=== PATIENT | male | born 1960 | race Caucasian/White ===

== ENCOUNTER 2019-09-28 05:19 | Inpatient (IN) ==
[2019-09-28] MEDS ORDERED: Ipratropium/Albuterol Neb 3 ML ONE ×2 (05:34→10:43)
[2019-09-28] MEDS ORDERED: methylPREDNISolone 125 MG/2 ML VIAL IVP ONE (05:37)
[2019-09-28] MEDS ORDERED: Ipratropium/Albuterol Neb 3 ML IH ONE (05:38)
[2019-09-28 05:39] LABS: ABG Base Excess -6 mEq/L (-2 to 3); ABG HCO3 22 mEq/L (21-27); ABG Oxygen Saturation 100 % (95-98); ABG PCO2 52 mmHg (35-45); ABG PH 7.23 pH Units (7.32-7.45); ABG PO2 231 mmHg (85-104); ABG TCO2 24 mEq/L (20-26)
[2019-09-28 05:57] LABS: Basophils # 0.1 K/mcL (0.0-0.2); Basophils % 0.5 %; Eosinophils # 0.4 K/mcL (0.0-0.6); Eosinophils % 3.3 %; Hematocrit 45.5 % (37.5-50.1); Hemoglobin 15.4 g/dL (12.9-16.9); Immature Granulocytes % 0.4 % (0-4); Lymphocytes # 4.1 K/mcL (0.6-4.6); Lymphocytes % 39.3 %; Mean Corpuscular HGB Conc 33.8 g/dL (31.6-35.5); Mean Corpuscular Hemoglobin 33.3 pg (28.0-33.3); Mean Corpuscular Volume 98.3 fL (83.0-100.0); Mean Platelet Volume 8.4 fL (9.4-12.4); Monocytes % 9.7 %; Neutrophils # 4.9 K/mcL (1.6-8.9); Platelet Count 369 K/mcL (140-400); Red Blood Count 4.63 M/mcL (4.19-5.50); Red Cell Distribution Width 12.2 % (11.5-14.5); Segmented Neutrophils % 46.8 %; White Blood Count 10.5 K/mcL (4.3-11.1)
[2019-09-28 06:02] LABS: Prothrombin Time 11.2 Seconds (9.4-12.1)
[2019-09-28 06:04] LABS: Activated Partial Thrombo Time 28.7 Seconds (26.0-36.0)
[2019-09-28 06:12] LABS: BUN/Creatinine Ratio 14 (6-26); Blood Urea Nitrogen 12 mg/dL (6-20); Calcium 9.1 mg/dL (8.6-10.3); Carbon Dioxide 24 mEq/L (23-29); Chloride 96 mEq/L (98-107); Glucose 216 mg/dL (70-105); Osmolality,Calculated 282 (280-300); Potassium 4.2 mEq/L (3.5-5.1); Sodium 133 mEq/L (136-145); eGFR For African Americans > 60 (> 60); eGFR For Non-African Americans > 60 (> 60)
[2019-09-28 06:13] LABS: Troponin I < 0.03 ng/mL (< 0.04)
[2019-09-28] MEDS ORDERED: *HR* FentaNYL (PF) 100 MCG/2 ML VIAL IVP ONE (06:27)
[2019-09-28] MEDS ORDERED: 0.9 % Sodium Chloride 500 ML IVC ONE ×2 (07:07→08:01)
[2019-09-28] MEDS ORDERED: Naloxone 0.4 MG/ML INJ IVP PRN (07:54)
[2019-09-28] MEDS ORDERED: Ondansetron 4 MG/2 ML VIAL IVP PRN (07:54)
[2019-09-28] MEDS: Azithromycin 500 MG in 0.9 % Sodium Chloride 250 ML IVPB SCH (09:42)
[2019-09-28] MEDS: 0.9 % Sodium Chloride 1,000 ML IVC SCH ×2 (09:42→23:21)
[2019-09-28] MEDS: Budesonide/Formoterol 160/4.5 1 PUFF INH IH SCH ×2 (09:45→19:52)
[2019-09-28] MEDS: Ipratropium/Albuterol Neb 3 ML IH SCH ×4 (10:52→23:09)
[2019-09-28] MEDS ORDERED: Aspirin 81 MG TAB.CHEW PO ONE (11:00)
[2019-09-28] MEDS ORDERED: *HR* Heparin 5,000 UNIT/ML VIAL IVP ONE (11:01)
[2019-09-28] MEDS ORDERED: *HR* Heparin 5,000 UNIT/ML VIAL IVP PRN ×2 (11:01)
[2019-09-28] MEDS ORDERED: Heparin 25,000 UNIT/250 ML D5W 25,000 UNIT/250 ML IV.SOLN IVC SCH (11:15)
[2019-09-28 11:35] LABS: ABG Base Excess -2 mEq/L (-2 to 3); ABG HCO3 24 mEq/L (21-27); ABG Oxygen Saturation 95 % (95-98); ABG PCO2 42 mmHg (35-45); ABG PH 7.36 pH Units (7.32-7.45); ABG PO2 78 mmHg (85-104); ABG TCO2 25 mEq/L (20-26)
[2019-09-28 17:34] LABS: Adenovirus Not Detected (Not Detect); Bordetella Pertussis Not Detected (Not Detect); Chlamydophila pneumoniae Not Detected (Not Detect); Coronavirus 229E Not Detected (Not Detect); Coronavirus HKU1 Not Detected (Not Detect); Coronavirus NL63 Not Detected (Not Detect); Coronavirus OC43 Not Detected (Not Detect); Human Metapneumovirus Not Detected (Not Detect); Human Rhinovirus/Enterovirus Not Detected (Not Detect); Influenza A Subtype 2009 H1 Not Detected (Not Detect); Influenza A Untypeable Not Detected (Not Detect); Influenza B Not Detected (Not Detect); Mycoplasma pneumoniae Not Detected (Not Detect); Parainfluenza Virus 1 Not Detected (Not Detect); Parainfluenza Virus 2 Not Detected (Not Detect); Parainfluenza Virus 3 Not Detected (Not Detect); Parainfluenza Virus 4 Not Detected (Not Detect); Respiratory Syncytial Virus Not Detected (Not Detect)
[2019-09-28] MEDS: Nicotine 14 MG PATCH.TD24 TD SCH (17:47)
[2019-09-28] MEDS: MethylPREDNISolone 40 MG/ML VIAL IVP SCH (17:48)
[2019-09-28] MEDS ORDERED: *HR* Heparin 5,000 UNIT/ML VIAL SQ SCH (18:00)
[2019-09-29 02:14] LABS: Basophils % 0.2 %; Hematocrit 37.9 % (37.5-50.1); Immature Granulocytes % 0.3 % (0-4); Lymphocytes # 0.7 K/mcL (0.6-4.6); Lymphocytes % 10.4 %; Mean Corpuscular HGB Conc 35.9 g/dL (31.6-35.5); Mean Corpuscular Hemoglobin 33.2 pg (28.0-33.3); Mean Corpuscular Volume 92.4 fL (83.0-100.0); Mean Platelet Volume 8.6 fL (9.4-12.4); Monocytes # 0.6 K/mcL (0.0-1.3); Monocytes % 10.2 %; Platelet Count 290 K/mcL (140-400); Red Cell Distribution Width 12.3 % (11.5-14.5); Segmented Neutrophils % 78.9 %; White Blood Count 6.3 K/mcL (4.3-11.1)
[2019-09-29 02:15] LABS: Hemoglobin 13.6 g/dL (12.9-16.9)
[2019-09-29 02:36] LABS: Alanine Aminotransferase 15 Units/L (7-52); Aspartate Amino Transferase 25 Units/L (13-39); BUN/Creatinine Ratio 16 (6-26); Blood Urea Nitrogen 9 mg/dL (6-20); Calcium 8.8 mg/dL (8.6-10.3); Carbon Dioxide 23 mEq/L (23-29); Chloride 99 mEq/L (98-107); Glucose 132 mg/dL (70-105); Magnesium 1.7 mg/dL (1.6-2.6); Osmolality,Calculated 275 (280-300); Sodium 132 mEq/L (136-145); eGFR For African Americans > 60 (> 60); eGFR For Non-African Americans > 60 (> 60)
[2019-09-29 02:37] LABS: Chol/HDL Ratio 2.3 (0-4.9)
[2019-09-29] MEDS: Ipratropium/Albuterol Neb 3 ML IH SCH ×6 (03:14→23:31)
[2019-09-29] MEDS: MethylPREDNISolone 40 MG/ML VIAL IVP SCH ×2 (05:34→18:31)
[2019-09-29 07:01] LABS: Estimated Average Glucose 126 mg/dl
[2019-09-29] MEDS: Budesonide/Formoterol 160/4.5 1 PUFF INH IH SCH ×2 (07:32→19:37)
[2019-09-29] MEDS: Azithromycin 500 MG in 0.9 % Sodium Chloride 250 ML IVPB SCH (07:49)
[2019-09-29] MEDS: Aspirin Enteric Coated 81 MG Tablet PO SCH (07:49)
[2019-09-29] MEDS: Nicotine 14 MG PATCH.TD24 TD SCH (07:49)
[2019-09-29] MEDS ORDERED: Perflutren Lipid Microsphere 1.3 ML in 0.9 % Sodium Chloride 8.7 ML IVP ONE (11:01)
[2019-09-29] MEDS ORDERED: Perflutren Lipid Microsphere 2 ML VIAL ONE (11:05)
[2019-09-29] MEDS ORDERED: ISOVUE-370 200 ML INFUS..BTL ONE (16:04)
[2019-09-29] MEDS ORDERED: Heparin 1,000 UNITS/500 mL 500 ML ONE (16:04)
[2019-09-29] MEDS ORDERED: 0.9 % Sodium Chloride 2,000 ML ONE (16:04)
[2019-09-29] MEDS ORDERED: *HR* Heparin 10,000 UNIT/10 ML VIAL ONE (16:04)
[2019-09-29] MEDS ORDERED: Nitroglycerin 1,000 MCG/10 ML VIAL IV ONE (16:04)
[2019-09-29] MEDS ORDERED: *HR* Midazolam HCl 2 MG/2 ML VIAL ONE (16:12)
[2019-09-29] MEDS ORDERED: *HR* FentaNYL (PF) 100 MCG/2 ML VIAL ONE (16:12)
[2019-09-29] MEDS ORDERED: Verapamil 5 MG/2 ML VIAL ONE (16:18)
[2019-09-29] MEDS: *HR* Heparin 5,000 UNIT/ML VIAL SQ SCH (21:36)
[2019-09-30 03:07] LABS: Basophils % 0.1 %; Hematocrit 38.5 % (37.5-50.1); Hemoglobin 13.5 g/dL (12.9-16.9); Immature Granulocytes % 0.2 % (0-4); Lymphocytes # 0.6 K/mcL (0.6-4.6); Mean Corpuscular HGB Conc 35.1 g/dL (31.6-35.5); Mean Corpuscular Hemoglobin 33.3 pg (28.0-33.3); Mean Corpuscular Volume 95.1 fL (83.0-100.0); Monocytes # 0.6 K/mcL (0.0-1.3); Monocytes % 6.7 %; Platelet Count 310 K/mcL (140-400); Red Blood Count 4.05 M/mcL (4.19-5.50); Red Cell Distribution Width 12.3 % (11.5-14.5); White Blood Count 8.2 K/mcL (4.3-11.1)
[2019-09-30 03:25] LABS: BUN/Creatinine Ratio 22 (6-26); Blood Urea Nitrogen 14 mg/dL (6-20); Calcium 8.9 mg/dL (8.6-10.3); Carbon Dioxide 26 mEq/L (23-29); Chloride 99 mEq/L (98-107); Glucose 125 mg/dL (70-105); Magnesium 1.6 mg/dL (1.6-2.6); Osmolality,Calculated 276 (280-300); Sodium 132 mEq/L (136-145); eGFR For African Americans > 60 (> 60); eGFR For Non-African Americans > 60 (> 60)
[2019-09-30] MEDS: Ipratropium/Albuterol Neb 3 ML IH SCH ×3 (03:41→10:59)
[2019-09-30] MEDS: MethylPREDNISolone 40 MG/ML VIAL IVP SCH (06:25)
[2019-09-30] MEDS: *HR* Heparin 5,000 UNIT/ML VIAL SQ SCH (06:25)
[2019-09-30] MEDS: Budesonide/Formoterol 160/4.5 1 PUFF INH IH SCH (07:53)
[2019-09-30] MEDS ORDERED: Metoprolol XL (24 HR) Succ 25 MG TAB.ER.24H PO SCH (09:00)
[2019-09-30] MEDS: Azithromycin 500 MG in 0.9 % Sodium Chloride 250 ML IVPB SCH (09:21)
[2019-09-30] MEDS: Aspirin Enteric Coated 81 MG Tablet PO SCH (09:22)
[2019-09-30] MEDS: Nicotine 14 MG PATCH.TD24 TD SCH (09:22)
[2019-09-30 11:13] VITALS: BP 112/83
== END 2019-09-30 13:45 | disposition home or self-care (01) | DRG 280 ==
LOC: 2NNU 05:19 → EMEROOARM 05:19 → 2NNU 09:00 → SUATTDRO 11:44 → MERGE 11:44
PROVIDERS: ADMIT Internal Medicine; ATTEND Pharmacist

== ENCOUNTER 2020-03-06 00:54 | Inpatient (IN) ==
[2020-03-06] MEDS ORDERED: Ipratropium/Albuterol Neb 3 ML ONE (00:59)
[2020-03-06] MEDS ORDERED: methylPREDNISolone 125 MG/2 ML VIAL IVP ONE (01:01)
[2020-03-06] MEDS ORDERED: Ipratropium/Albuterol Neb 3 ML IH ONE ×2 (01:01→02:14)
[2020-03-06] MEDS ORDERED: 0.9 % Sodium Chloride 1,000 ML ONE (01:10)
[2020-03-06] MEDS ORDERED: *HR* Etomidate 20 MG/10 ML AMPUL IVP ONE (01:16)
[2020-03-06] MEDS ORDERED: *HR* Rocuronium Bromide 50 MG/5 ML VIAL IVP ONE (01:16)
[2020-03-06 01:20] LABS: ABG Base Excess -5 mEq/L (-2 to 3); ABG HCO3 25 mEq/L (21-27); ABG Oxygen Saturation 100 % (95-98); ABG PCO2 69 mmHg (35-45); ABG PH 7.17 pH Units (7.32-7.45); ABG PO2 555 mmHg (85-104); ABG TCO2 27 mEq/L (20-26)
[2020-03-06 01:24] LABS: INR 1.1; Prothrombin Time 12.1 Seconds (9.4-12.1)
[2020-03-06 01:24] LABS: Basophils # 0.1 K/mcL (0.0-0.2); Basophils % 0.5 %; Eosinophils # 0.3 K/mcL (0.0-0.6); Eosinophils % 2.7 %; Hematocrit 41.3 % (37.5-50.1); Hemoglobin 13.7 g/dL (12.9-16.9); Immature Granulocytes % 0.3 % (0-4); Lymphocytes # 2.8 K/mcL (0.6-4.6); Lymphocytes % 29.5 %; Mean Corpuscular HGB Conc 33.2 g/dL (31.6-35.5); Mean Corpuscular Hemoglobin 32.2 pg (28.0-33.3); Mean Corpuscular Volume 96.9 fL (83.0-100.0); Monocytes # 0.9 K/mcL (0.0-1.3); Monocytes % 9.8 %; Neutrophils # 5.5 K/mcL (1.6-8.9); Platelet Count 295 K/mcL (140-400); Red Blood Count 4.26 M/mcL (4.19-5.50); Red Cell Distribution Width 12.3 % (11.5-14.5); Segmented Neutrophils % 57.2 %; White Blood Count 9.6 K/mcL (4.3-11.1)
[2020-03-06 01:31] LABS: Bilirubin,Urine Negative (Negative); Blood,Urine Small (Negative); Clarity,Urine Clear (Clear); Color,Urine Yellow (Yellow); Glucose,Urine (UA) Normal (Normal); Ketones,Urine Negative (Negative); Leukocyte Esterase,Urine Negative (Negative); Nitrite,Urine Negative (Negative); Protein,Urine 30 mg/dL (Neg-Trace); Specific Gravity,Urine 1.016 (1.010-1.025); Urobilinogen,Urine Normal (Normal)
[2020-03-06 01:34] LABS: Bacteria,Urine None Seen per hpf (None-Few); RBC,Urine 15-30 per hpf (0-3); Squamous Epithelial Cell,Urine Many per lpf (None-Few); WBC,Urine 0-3 per hpf (0-3)
[2020-03-06] MEDS: FentaNYL (PF) 1,000 MCG in 0.9 % Sodium Chloride 80 ML IVC SCH ×3 (01:36→19:40)
[2020-03-06 01:43] LABS: Alanine Aminotransferase 20 Units/L (7-52); Albumin/Globulin Ratio 1.9 (1.1-2.2); Alkaline Phosphatase 99 Units/L (34-104); Aspartate Amino Transferase 23 Units/L (13-39); BUN/Creatinine Ratio 18 (6-26); Bilirubin,Direct 0.1 mg/dL (0.0-0.2); Bilirubin,Indirect 0.3 mg/dL (0.0-1.0); Bilirubin,Total 0.4 mg/dL (0.3-1.0); Blood Urea Nitrogen 12 mg/dL (6-20); Calcium 8.3 mg/dL (8.6-10.3); Carbon Dioxide 26 mEq/L (23-29); Chloride 91 mEq/L (98-107); Globulin 2.1 g/dL (2.4-3.5); Glucose 140 mg/dL (70-105); Magnesium 1.8 mg/dL (1.6-2.6); Osmolality,Calculated 264 (280-300); Phosphorous 4.9 mg/dL (2.7-4.5); Potassium 4.6 mEq/L (3.5-5.1); Sodium 126 mEq/L (136-145); Total Protein 6.1 g/dL (6.4-8.9); Troponin I < 0.03 ng/mL (< 0.04); eGFR For African Americans > 60 (> 60); eGFR For Non-African Americans > 60 (> 60)
[2020-03-06] MEDS ORDERED: 0.9 % Sodium Chloride 1,000 ML IVC ONE (01:52)
[2020-03-06 01:54] LABS: Granular Casts,Urine Moderate per lpf (None Seen); Hyaline Casts,Urine None Seen per lpf (None-Few)
[2020-03-06] MEDS ORDERED: cefTRIAXone 2,000 MG in Water for inj. (sterile) 20 ML IVP STA (01:58)
[2020-03-06] MEDS ORDERED: Azithromycin 500 MG in 0.9 % Sodium Chloride 250 ML IVPB STA (01:58)
[2020-03-06] MEDS ORDERED: Albuterol Neb 7.5 MG, Sodium Chloride for inhalation 12 ML IH STA (02:23)
[2020-03-06] MEDS ORDERED: Sodium Chloride for inhalation 3 ML VIAL IH ONE (02:45)
[2020-03-06] MEDS ORDERED: Albuterol 2.5 MG/3 ML NEBULIZER IH ONE (02:45)
[2020-03-06] MEDS ORDERED: Naloxone 0.4 MG/ML INJ IVP PRN (03:19)
[2020-03-06] MEDS ORDERED: Artificial Tears SOLN 15 ML BOTTLE BOTH EYES PRN (03:21)
[2020-03-06] MEDS ORDERED: Isovue-370 500 ML BOTTLE IVP ONE ×2 (03:21→08:24)
[2020-03-06 03:57] LABS: ABG Base Excess -5 mEq/L (-2 to 3); ABG HCO3 23 mEq/L (21-27); ABG Oxygen Saturation 100 % (95-98); ABG PCO2 54 mmHg (35-45); ABG PH 7.24 pH Units (7.32-7.45); ABG PO2 368 mmHg (85-104); ABG TCO2 25 mEq/L (20-26)
[2020-03-06] MEDS: Ipratropium/Albuterol Neb 3 ML IH SCH ×6 (04:21→23:41)
[2020-03-06 04:53] LABS: Eosinophils % 0.7 %; Immature Granulocytes % 0.9 % (0-4); Mean Corpuscular Volume 96.9 fL (83.0-100.0)
[2020-03-06 04:55] LABS: Basophils % 0.1 %; Eosinophils # 0.1 K/mcL (0.0-0.6); Hematocrit 40.3 % (37.5-50.1); Hemoglobin 13.4 g/dL (12.9-16.9); Immature Platelets 2.7 % (1.1-6.1); Lymphocytes # 0.7 K/mcL (0.6-4.6); Lymphocytes % 4.2 %; Mean Corpuscular HGB Conc 33.3 g/dL (31.6-35.5); Mean Corpuscular Hemoglobin 32.2 pg (28.0-33.3); Mean Platelet Volume 8.2 fL (9.4-12.4); Monocytes # 0.4 K/mcL (0.0-1.3); Monocytes % 2.5 %; Neutrophils # 15.3 K/mcL (1.6-8.9); Platelet Count 200 K/mcL (140-400); Red Blood Count 4.16 M/mcL (4.19-5.50); Red Cell Distribution Width 12.4 % (11.5-14.5); Segmented Neutrophils % 91.6 %; White Blood Count 16.7 K/mcL (4.3-11.1)
[2020-03-06 04:58] LABS: INR 1.1; Prothrombin Time 12.4 Seconds (9.4-12.1)
[2020-03-06 05:00] LABS: Activated Partial Thrombo Time 34.1 Seconds (26.0-36.0)
[2020-03-06] MEDS: Artificial Tears SOLN 15 ML BOTTLE BOTH EYES SCH ×5 (05:17→20:11)
[2020-03-06] MEDS ORDERED: *HR* Heparin 5,000 UNIT/ML VIAL SQ SCH (06:00)
[2020-03-06] MEDS ORDERED: 0.9 % Sodium Chloride 500 ML IVC ONE (06:08)
[2020-03-06 06:25] LABS: BUN/Creatinine Ratio 20 (6-26); Blood Urea Nitrogen 11 mg/dL (6-20); Carbon Dioxide 19 mEq/L (23-29); Chloride 90 mEq/L (98-107); Glucose 180 mg/dL (70-105); Potassium 3.8 mEq/L (3.5-5.1); eGFR For African Americans > 60 (> 60); eGFR For Non-African Americans > 60 (> 60)
[2020-03-06 06:26] LABS: Osmolality,Calculated 250 (280-300); Phosphorous 4.2 mg/dL (2.7-4.5)
[2020-03-06 06:27] LABS: Sodium 118 mEq/L (136-145)
[2020-03-06] MEDS ORDERED: 0.9 % Sodium Chloride 1,000 ML IVC SCH (06:45)
[2020-03-06] MEDS ORDERED: Ringers Solution, Lactated 500 ML ONE (07:19)
[2020-03-06] MEDS ORDERED: *HR* Midazolam HCl 5 MG/5 ML VIAL IVP ONE (07:31)
[2020-03-06] MEDS ORDERED: Dexmedetomidine HCl 400 MCG/100 ML MLS IVC ONE ×2 (07:32→20:31)
[2020-03-06] MEDS: Budesonide/Formoterol 160/4.5 1 PUFF INH IH SCH ×2 (07:39→19:51)
[2020-03-06] MEDS: Calcium Gluconate 1gm/50mL 1 GM/50 ML BAG IVPB SCH ×5 (07:54→12:04)
[2020-03-06 08:49] LABS: ABG Base Excess -5 mEq/L (-2 to 3); ABG HCO3 22 mEq/L (21-27); ABG Oxygen Saturation 96 % (95-98); ABG PCO2 49 mmHg (35-45); ABG PH 7.27 pH Units (7.32-7.45); ABG PO2 91 mmHg (85-104); ABG TCO2 24 mEq/L (20-26); Blood Gas Modality ASSIST CONTROL; Blood Gas VT 450 cc
[2020-03-06] MEDS ORDERED: cefTRIAXone 2,000 MG in 0.9 % Sodium Chloride Mini Bag 100 ML IVPB SCH (09:00)
[2020-03-06 09:32] LABS: BUN/Creatinine Ratio 17 (6-26); Blood Urea Nitrogen 12 mg/dL (6-20); Calcium 8.3 mg/dL (8.6-10.3); Carbon Dioxide 26 mEq/L (23-29); Chloride 93 mEq/L (98-107); Glucose 150 mg/dL (70-105); Osmolality,Calculated 263 (280-300); Potassium 4.9 mEq/L (3.5-5.1); Sodium 125 mEq/L (136-145); eGFR For African Americans > 60 (> 60); eGFR For Non-African Americans > 60 (> 60)
[2020-03-06] MEDS: Norepinephrine 4 MG in 0.9 % Sodium Chloride 250 ML IVC SCH (09:51)
[2020-03-06] MEDS ORDERED: Folic Acid 1 MG, Thiamine (B-1) 100 MG in 0.9 % Sodium Chloride 50 ML IVPB STA (09:51)
[2020-03-06] MEDS: Metoprolol XL (24 HR) Succ 25 MG TAB.ER.24H PO SCH (09:53)
[2020-03-06] MEDS ORDERED: Folic Acid 1 MG in 0.9 % Sodium Chloride 50 ML IVPB STA (09:55)
[2020-03-06] MEDS: MethylPREDNISolone 40 MG/ML VIAL IVP SCH ×3 (10:01→22:06)
[2020-03-06] MEDS: Chlorhexidine Rinse 15 ML MOUTHWASH MM SCH ×2 (10:01→19:53)
[2020-03-06] MEDS: Nicotine 14 MG PATCH.TD24 TD SCH (10:01)
[2020-03-06] MEDS: Pantoprazole 40 MG VIAL IVP SCH (10:01)
[2020-03-06] MEDS: Piperacillin/Tazobactam 3.375 GM in 0.9 % Sodium Chloride Mini Bag 100 ML IVPB SCH ×3 (10:02→22:06)
[2020-03-06] MEDS ORDERED: Perflutren Lipid Microsphere 1.3 ML in 0.9 % Sodium Chloride 8.7 ML IVP ONE (10:20)
[2020-03-06 10:22] LABS: Thyroid Stimulating Hormone 0.419 mcIU/mL (0.340-5.600)
[2020-03-06 11:49] LABS: VBG Ionized Calcium 1.18 mmol/L (1.15-1.35)
[2020-03-06 12:01] LABS: BUN/Creatinine Ratio 17 (6-26); Blood Urea Nitrogen 12 mg/dL (6-20); Calcium 8.7 mg/dL (8.6-10.3); Carbon Dioxide 23 mEq/L (23-29); Chloride 94 mEq/L (98-107); Glucose 162 mg/dL (70-105); Osmolality,Calculated 257 (280-300); Potassium 5.2 mEq/L (3.5-5.1); Sodium 122 mEq/L (136-145); eGFR For African Americans > 60 (> 60); eGFR For Non-African Americans > 60 (> 60)
[2020-03-06] MEDS ORDERED: *HR* Heparin 5,000 UNIT/ML VIAL IVP PRN ×2 (12:34)
[2020-03-06] MEDS ORDERED: *HR* Heparin 5,000 UNIT/ML VIAL IVP ONE (12:34)
[2020-03-06] MEDS: Aspirin Enteric Coated 81 MG Tablet PO SCH (12:39)
[2020-03-06] MEDS ORDERED: Heparin 25,000 UNIT/250 ML D5W 25,000 UNIT/250 ML IV.SOLN IVC SCH (12:45)
[2020-03-06] MEDS ORDERED: Aspirin 325 MG TABLET GTUBE ONE (15:02)
[2020-03-06] MEDS ORDERED: 0.9 % Sodium Chloride 250 ML IVC ONE (15:06)
[2020-03-06] MEDS ORDERED: Ringers Solution, Lactated 250 ML IVC ONE (15:10)
[2020-03-06 17:16] LABS: BUN/Creatinine Ratio 17 (6-26); Blood Urea Nitrogen 12 mg/dL (6-20); Calcium 8.7 mg/dL (8.6-10.3); Carbon Dioxide 23 mEq/L (23-29); Chloride 96 mEq/L (98-107); Glucose 187 mg/dL (70-105); Osmolality,Calculated 263 (280-300); Potassium 5.1 mEq/L (3.5-5.1); Sodium 124 mEq/L (136-145); eGFR For African Americans > 60 (> 60); eGFR For Non-African Americans > 60 (> 60)
[2020-03-06] MEDS: Dexmedetomidine HCl 400 MCG/100 ML MLS IVC SCH (20:40)
[2020-03-06 22:44] LABS: BUN/Creatinine Ratio 18 (6-26); Blood Urea Nitrogen 11 mg/dL (6-20); Calcium 8.3 mg/dL (8.6-10.3); Carbon Dioxide 23 mEq/L (23-29); Chloride 96 mEq/L (98-107); Glucose 182 mg/dL (70-105); Osmolality,Calculated 266 (280-300); Potassium 4.7 mEq/L (3.5-5.1); Sodium 126 mEq/L (136-145); eGFR For African Americans > 60 (> 60); eGFR For Non-African Americans > 60 (> 60)
[2020-03-07] MEDS: Artificial Tears SOLN 15 ML BOTTLE BOTH EYES SCH ×6 (01:17→21:25)
[2020-03-07] MEDS: Ipratropium/Albuterol Neb 3 ML IH SCH ×5 (03:37→19:46)
[2020-03-07 04:21] LABS: Hematocrit 37.9 % (37.5-50.1); Hemoglobin 12.9 g/dL (12.9-16.9); Immature Granulocytes % 0.4 % (0-4); Lymphocytes # 0.5 K/mcL (0.6-4.6); Lymphocytes % 6.5 %; Mean Corpuscular Hemoglobin 32.2 pg (28.0-33.3); Mean Corpuscular Volume 94.5 fL (83.0-100.0); Mean Platelet Volume 8.6 fL (9.4-12.4); Monocytes # 0.5 K/mcL (0.0-1.3); Platelet Count 210 K/mcL (140-400); Red Blood Count 4.01 M/mcL (4.19-5.50); Red Cell Distribution Width 12.3 % (11.5-14.5); Segmented Neutrophils % 87.1 %
[2020-03-07 04:25] LABS: Heparin anti-factor XA UFH 0.7 IU/mL (0.30-0.70)
[2020-03-07 04:28] LABS: ABG Base Excess 0 mEq/L (-2 to 3); ABG HCO3 26 mEq/L (21-27); ABG Oxygen Saturation 94 % (95-98); ABG PCO2 49 mmHg (35-45); ABG PH 7.34 pH Units (7.32-7.45); ABG PO2 77 mmHg (85-104); ABG TCO2 28 mEq/L (20-26); Blood Gas Modality AF; Blood Gas VT 450 cc
[2020-03-07 04:40] LABS: Activated Partial Thrombo Time 115.1 Seconds (26.0-36.0)
[2020-03-07 04:42] LABS: Alanine Aminotransferase 19 Units/L (7-52); Albumin 3.2 g/dL (3.5-5.7); Albumin/Globulin Ratio 1.8 (1.1-2.2); Alkaline Phosphatase 65 Units/L (34-104); Aspartate Amino Transferase 30 Units/L (13-39); BUN/Creatinine Ratio 20 (6-26); Bilirubin,Direct 0.1 mg/dL (0.0-0.2); Bilirubin,Indirect 0.3 mg/dL (0.0-1.0); Bilirubin,Total 0.4 mg/dL (0.3-1.0); Blood Urea Nitrogen 11 mg/dL (6-20); Calcium 8.4 mg/dL (8.6-10.3); Carbon Dioxide 23 mEq/L (23-29); Chloride 95 mEq/L (98-107); Globulin 1.8 g/dL (2.4-3.5); Glucose 170 mg/dL (70-105); Osmolality,Calculated 265 (280-300); Potassium 4.4 mEq/L (3.5-5.1); Sodium 126 mEq/L (136-145); eGFR For African Americans > 60 (> 60); eGFR For Non-African Americans > 60 (> 60)
[2020-03-07] MEDS: FentaNYL (PF) 1,000 MCG in 0.9 % Sodium Chloride 80 ML IVC SCH (04:54)
[2020-03-07] MEDS: Azithromycin 500 MG in 0.9 % Sodium Chloride 250 ML IVPB SCH (06:30)
[2020-03-07] MEDS: Dexmedetomidine HCl 400 MCG/100 ML MLS IVC SCH ×2 (07:07→17:37)
[2020-03-07] MEDS: Budesonide/Formoterol 160/4.5 1 PUFF INH IH SCH ×2 (07:19→19:47)
[2020-03-07] MEDS: Norepinephrine 4 MG in 0.9 % Sodium Chloride 250 ML IVC SCH (07:30)
[2020-03-07] MEDS ORDERED: Aminoglycoside Consult 1 EACH MC ONE (08:47)
[2020-03-07] MEDS: Piperacillin/Tazobactam 3.375 GM in 0.9 % Sodium Chloride Mini Bag 100 ML IVPB SCH ×2 (08:49→15:20)
[2020-03-07] MEDS: MethylPREDNISolone 40 MG/ML VIAL IVP SCH ×2 (08:49→15:20)
[2020-03-07] MEDS: Nicotine 14 MG PATCH.TD24 TD SCH (08:50)
[2020-03-07] MEDS: Chlorhexidine Rinse 15 ML MOUTHWASH MM SCH ×2 (08:50→21:25)
[2020-03-07] MEDS: Aspirin Enteric Coated 81 MG Tablet PO SCH (08:50)
[2020-03-07] MEDS: Metoprolol XL (24 HR) Succ 25 MG TAB.ER.24H PO SCH (08:51)
[2020-03-07] MEDS: Pantoprazole 40 MG VIAL IVP SCH (08:51)
[2020-03-07] MEDS ORDERED: Thiamine (B-1) 100 MG in 0.9 % Sodium Chloride 50 ML IVPB SCH (09:00)
[2020-03-07] MEDS ORDERED: *HR* Enoxaparin 40 MG/0.4 ML SYRINGE SQ SCH (15:00)
[2020-03-07] MEDS: *HR* Enoxaparin 40 MG/0.4 ML SYRINGE SQ SCH (17:37)
[2020-03-07] MEDS ORDERED: Morphine Sulfate Oral CONC 10 MG/0.5 ML ORAL.SYG SL ONE (18:42)
[2020-03-07] MEDS: QUEtiapine Fumarate 25 MG TABLET PO SCH (19:55)
[2020-03-07] MEDS: *HR* LORazepam 2 MG/ML VIAL IVP PRN (21:51)
[2020-03-08] MEDS: Piperacillin/Tazobactam 3.375 GM in 0.9 % Sodium Chloride Mini Bag 100 ML IVPB SCH ×4 (00:04→23:44)
[2020-03-08] MEDS: MethylPREDNISolone 40 MG/ML VIAL IVP SCH ×2 (00:04→09:27)
[2020-03-08] MEDS: Ipratropium/Albuterol Neb 3 ML IH SCH ×7 (00:19→23:20)
[2020-03-08] MEDS: Artificial Tears SOLN 15 ML BOTTLE BOTH EYES SCH ×2 (01:58→05:02)
[2020-03-08] MEDS: Dexmedetomidine HCl 400 MCG/100 ML MLS IVC SCH ×2 (02:00→12:10)
[2020-03-08] MEDS: Azithromycin 500 MG in 0.9 % Sodium Chloride 250 ML IVPB SCH (05:06)
[2020-03-08] MEDS: *HR* LORazepam 2 MG/ML VIAL IVP PRN ×2 (05:07→20:22)
[2020-03-08 05:38] LABS: Hematocrit 35.6 % (37.5-50.1); Hemoglobin 12.3 g/dL (12.9-16.9); Immature Granulocytes % 0.5 % (0-4); Lymphocytes # 0.3 K/mcL (0.6-4.6); Lymphocytes % 3.4 %; Mean Corpuscular HGB Conc 34.6 g/dL (31.6-35.5); Mean Corpuscular Hemoglobin 32.6 pg (28.0-33.3); Mean Corpuscular Volume 94.4 fL (83.0-100.0); Mean Platelet Volume 8.5 fL (9.4-12.4); Monocytes # 0.5 K/mcL (0.0-1.3); Monocytes % 5.8 %; Neutrophils # 7.9 K/mcL (1.6-8.9); Platelet Count 235 K/mcL (140-400); Red Blood Count 3.77 M/mcL (4.19-5.50); Red Cell Distribution Width 12.7 % (11.5-14.5); Segmented Neutrophils % 90.3 %; White Blood Count 8.8 K/mcL (4.3-11.1)
[2020-03-08 05:54] LABS: Alanine Aminotransferase 28 Units/L (7-52); Albumin 3.4 g/dL (3.5-5.7); Albumin/Globulin Ratio 1.8 (1.1-2.2); Alkaline Phosphatase 59 Units/L (34-104); Aspartate Amino Transferase 49 Units/L (13-39); BUN/Creatinine Ratio 21 (6-26); Bilirubin,Direct 0.1 mg/dL (0.0-0.2); Bilirubin,Indirect 0.5 mg/dL (0.0-1.0); Bilirubin,Total 0.6 mg/dL (0.3-1.0); Blood Urea Nitrogen 12 mg/dL (6-20); Calcium 8.5 mg/dL (8.6-10.3); Carbon Dioxide 30 mEq/L (23-29); Chloride 94 mEq/L (98-107); Glucose 97 mg/dL (70-105); Osmolality,Calculated 270 (280-300); Potassium 4.5 mEq/L (3.5-5.1); Sodium 130 mEq/L (136-145); Total Protein 5.3 g/dL (6.4-8.9); eGFR For African Americans > 60 (> 60); eGFR For Non-African Americans > 60 (> 60)
[2020-03-08 05:55] LABS: Globulin 1.9 g/dL (2.4-3.5)
[2020-03-08] MEDS: Budesonide/Formoterol 160/4.5 1 PUFF INH IH SCH ×2 (07:15→20:00)
[2020-03-08] MEDS ORDERED: *HR* Etomidate 20 MG/10 ML AMPUL IVP ONE (09:12)
[2020-03-08] MEDS ORDERED: *HR* Rocuronium Bromide 100 MG/10 ML VIAL IVC ONE (09:12)
[2020-03-08] MEDS: Pantoprazole 40 MG VIAL IVP SCH (09:27)
[2020-03-08] MEDS: Aspirin Enteric Coated 81 MG Tablet PO SCH (09:27)
[2020-03-08] MEDS: Nicotine 14 MG PATCH.TD24 TD SCH (09:27)
[2020-03-08] MEDS: Metoprolol XL (24 HR) Succ 25 MG TAB.ER.24H PO SCH (09:27)
[2020-03-08 11:11] LABS: ABG Base Excess 6 mEq/L (-2 to 3); ABG HCO3 31 mEq/L (21-27); ABG Oxygen Saturation 96 % (95-98); ABG PCO2 44 mmHg (35-45); ABG PH 7.45 pH Units (7.32-7.45); ABG PO2 78 mmHg (85-104); ABG TCO2 32 mEq/L (20-26)
[2020-03-08] MEDS ORDERED: Metoprolol XL (24 HR) Succ 25 MG TAB.ER.24H PO SCH (12:02)
[2020-03-08] MEDS: QUEtiapine Fumarate 25 MG TABLET PO SCH ×2 (12:11→20:25)
[2020-03-08] MEDS: *HR* Enoxaparin 40 MG/0.4 ML SYRINGE SQ SCH (17:33)
[2020-03-08] MEDS: carvediloL 6.25 MG TABLET PO SCH (17:34)
[2020-03-08] MEDS ORDERED: Acetaminophen 325 MG TABLET PO PRN (20:20)
[2020-03-08] MEDS: *HR* HYDROcodone/Acet 5/325 mg TABLET PO PRN (20:30)
[2020-03-09] MEDS: Dexmedetomidine HCl 400 MCG/100 ML MLS IVC SCH (00:54)
[2020-03-09] MEDS: Ipratropium/Albuterol Neb 3 ML IH SCH ×7 (03:33→23:25)
[2020-03-09 04:00] LABS: Hematocrit 34.7 % (37.5-50.1); Hemoglobin 12.1 g/dL (12.9-16.9); Immature Granulocytes % 0.4 % (0-4); Lymphocytes # 1.1 K/mcL (0.6-4.6); Lymphocytes % 14.3 %; Mean Corpuscular HGB Conc 34.9 g/dL (31.6-35.5); Mean Corpuscular Hemoglobin 32.9 pg (28.0-33.3); Mean Corpuscular Volume 94.3 fL (83.0-100.0); Mean Platelet Volume 8.5 fL (9.4-12.4); Monocytes # 0.9 K/mcL (0.0-1.3); Monocytes % 11.3 %; Neutrophils # 5.9 K/mcL (1.6-8.9); Platelet Count 225 K/mcL (140-400); Red Blood Count 3.68 M/mcL (4.19-5.50); Red Cell Distribution Width 12.8 % (11.5-14.5); White Blood Count 7.9 K/mcL (4.3-11.1)
[2020-03-09 04:19] LABS: Alanine Aminotransferase 31 Units/L (7-52); Albumin 3.1 g/dL (3.5-5.7); Albumin/Globulin Ratio 1.6 (1.1-2.2); Alkaline Phosphatase 48 Units/L (34-104); Aspartate Amino Transferase 46 Units/L (13-39); BUN/Creatinine Ratio 26 (6-26); Bilirubin,Direct 0.2 mg/dL (0.0-0.2); Bilirubin,Indirect 0.6 mg/dL (0.0-1.0); Bilirubin,Total 0.8 mg/dL (0.3-1.0); Blood Urea Nitrogen 14 mg/dL (6-20); Calcium 8.3 mg/dL (8.6-10.3); Carbon Dioxide 29 mEq/L (23-29); Chloride 93 mEq/L (98-107); Globulin 1.9 g/dL (2.4-3.5); Glucose 82 mg/dL (70-105); Osmolality,Calculated 268 (280-300); Potassium 4.1 mEq/L (3.5-5.1); Sodium 129 mEq/L (136-145); eGFR For African Americans > 60 (> 60); eGFR For Non-African Americans > 60 (> 60)
[2020-03-09] MEDS: Azithromycin 500 MG in 0.9 % Sodium Chloride 250 ML IVPB SCH (05:30)
[2020-03-09] MEDS: Budesonide/Formoterol 160/4.5 1 PUFF INH IH SCH ×2 (07:49→19:43)
[2020-03-09] MEDS: Aspirin Enteric Coated 81 MG Tablet PO SCH (08:33)
[2020-03-09] MEDS: carvediloL 6.25 MG TABLET PO SCH (08:34)
[2020-03-09] MEDS: Nicotine 14 MG PATCH.TD24 TD SCH (08:34)
[2020-03-09] MEDS: Piperacillin/Tazobactam 3.375 GM in 0.9 % Sodium Chloride Mini Bag 100 ML IVPB SCH (08:34)
[2020-03-09] MEDS ORDERED: lisinopriL 10 MG TABLET PO SCH (09:00)
[2020-03-09] MEDS ORDERED: predniSONE 20 MG TABLET PO SCH (09:00)
[2020-03-09] MEDS ORDERED: 0.9 % Sodium Chloride 250 ML IVC ONE (09:46)
[2020-03-09] MEDS: QUEtiapine Fumarate 25 MG TABLET PO SCH (10:09)
[2020-03-09] MEDS: *HR* HYDROcodone/Acet 5/325 mg TABLET PO PRN ×2 (13:14→19:27)
[2020-03-09] MEDS ORDERED: Naloxone 0.4 MG/ML INJ IVP PRN (15:51)
[2020-03-09] MEDS ORDERED: carvediloL 6.25 MG TABLET PO SCH (17:00)
[2020-03-09] MEDS ORDERED: *HR* Enoxaparin 40 MG/0.4 ML SYRINGE SQ SCH (18:00)
[2020-03-09] MEDS: Doxycycline 100 MG CAPSULE PO SCH (20:20)
[2020-03-09] MEDS: Acetaminophen 325 MG TABLET PO PRN (20:21)
[2020-03-09] MEDS ORDERED: Doxycycline 100 MG CAPSULE PO SCH (21:00)
[2020-03-09] MEDS ORDERED: QUEtiapine Fumarate 25 MG TABLET PO SCH (21:00)
[2020-03-09] MEDS: *HR* OxyCODONE Immed Rel 5 MG TABLET PO PRN (23:23)
[2020-03-10] MEDS: Ipratropium/Albuterol Neb 3 ML IH SCH ×6 (03:29→23:25)
[2020-03-10] MEDS: *HR* HYDROcodone/Acet 5/325 mg TABLET PO PRN (03:38)
[2020-03-10] MEDS: Acetaminophen 325 MG TABLET PO PRN (04:48)
[2020-03-10] MEDS: *HR* OxyCODONE Immed Rel 5 MG TABLET PO PRN ×2 (05:31→19:51)
[2020-03-10] MEDS: Budesonide/Formoterol 160/4.5 1 PUFF INH IH SCH ×3 (07:31→20:14)
[2020-03-10] MEDS: Doxycycline 100 MG CAPSULE PO SCH ×2 (08:59→20:32)
[2020-03-10] MEDS ORDERED: Azithromycin 250 MG TABLET PO SCH ×2 (09:00)
[2020-03-10] MEDS ORDERED: QUEtiapine Fumarate 25 MG TABLET PO SCH (09:00)
[2020-03-10] MEDS ORDERED: predniSONE 20 MG TABLET PO SCH (09:00)
[2020-03-10] MEDS ORDERED: Aspirin Enteric Coated 81 MG Tablet PO SCH (09:00)
[2020-03-10] MEDS ORDERED: Nicotine 14 MG PATCH.TD24 TD SCH (09:00)
[2020-03-10] MEDS ORDERED: *HR* HYDROcodone/Acet 5/325 mg TABLET PO PRN (09:13)
[2020-03-10] MEDS ORDERED: Naloxone 0.4 MG/ML INJ IVP PRN (09:13)
[2020-03-10] MEDS ORDERED: Acetaminophen 325 MG TABLET PO PRN (09:13)
[2020-03-10] MEDS: carvediloL 6.25 MG TABLET PO SCH (17:16)
[2020-03-10] MEDS: *HR* Enoxaparin 40 MG/0.4 ML SYRINGE SQ SCH (17:16)
[2020-03-10] MEDS: QUEtiapine Fumarate 25 MG TABLET PO SCH (20:32)
[2020-03-11] MEDS: *HR* OxyCODONE Immed Rel 5 MG TABLET PO PRN ×2 (01:54→22:18)
[2020-03-11] MEDS: Ipratropium/Albuterol Neb 3 ML IH SCH ×6 (03:23→23:30)
[2020-03-11 06:48] LABS: BUN/Creatinine Ratio 27 (6-26); Blood Urea Nitrogen 15 mg/dL (6-20); Calcium 8.5 mg/dL (8.6-10.3); Carbon Dioxide 30 mEq/L (23-29); Chloride 98 mEq/L (98-107); Glucose 81 mg/dL (70-105); Osmolality,Calculated 276 (280-300); Potassium 3.8 mEq/L (3.5-5.1); Sodium 133 mEq/L (136-145); eGFR For African Americans > 60 (> 60); eGFR For Non-African Americans > 60 (> 60)
[2020-03-11] MEDS: Budesonide/Formoterol 160/4.5 1 PUFF INH IH SCH ×2 (07:32→19:40)
[2020-03-11] MEDS: Nicotine 14 MG PATCH.TD24 TD SCH (08:28)
[2020-03-11] MEDS: Aspirin Enteric Coated 81 MG Tablet PO SCH (08:31)
[2020-03-11] MEDS: Doxycycline 100 MG CAPSULE PO SCH ×2 (08:32→20:11)
[2020-03-11] MEDS: QUEtiapine Fumarate 25 MG TABLET PO SCH ×2 (08:32→20:12)
[2020-03-11] MEDS: carvediloL 6.25 MG TABLET PO SCH ×2 (08:33→17:51)
[2020-03-11] MEDS: Sennosides/Docusate Sodium TABLET PO SCH ×2 (13:33→20:12)
[2020-03-11] MEDS: *HR* Enoxaparin 40 MG/0.4 ML SYRINGE SQ SCH (17:51)
[2020-03-11 19:06] LABS: VBG Ionized Calcium 1.11 mmol/L (1.15-1.35)
[2020-03-12] MEDS: Ipratropium/Albuterol Neb 3 ML IH SCH ×4 (03:40→15:31)
[2020-03-12 04:41] LABS: Basophils % 0.1 %; Eosinophils # 0.4 K/mcL (0.0-0.6); Eosinophils % 4.7 %; Hematocrit 40.1 % (37.5-50.1); Immature Granulocytes % 0.5 % (0-4); Lymphocytes # 2.8 K/mcL (0.6-4.6); Lymphocytes % 34.7 %; Mean Corpuscular HGB Conc 34.4 g/dL (31.6-35.5); Mean Corpuscular Hemoglobin 32.7 pg (28.0-33.3); Monocytes # 0.8 K/mcL (0.0-1.3); Platelet Count 298 K/mcL (140-400); Red Blood Count 4.22 M/mcL (4.19-5.50); Red Cell Distribution Width 12.6 % (11.5-14.5); White Blood Count 8.1 K/mcL (4.3-11.1)
[2020-03-12 04:44] LABS: Hemoglobin 13.8 g/dL (12.9-16.9)
[2020-03-12 05:01] LABS: BUN/Creatinine Ratio 27 (6-26); Blood Urea Nitrogen 15 mg/dL (6-20); Calcium 8.6 mg/dL (8.6-10.3); Carbon Dioxide 29 mEq/L (23-29); Chloride 97 mEq/L (98-107); Glucose 85 mg/dL (70-105); Magnesium 1.7 mg/dL (1.6-2.6); Osmolality,Calculated 272 (280-300); Phosphorous 4.2 mg/dL (2.7-4.5); Potassium 3.9 mEq/L (3.5-5.1); Sodium 131 mEq/L (136-145); eGFR For African Americans > 60 (> 60); eGFR For Non-African Americans > 60 (> 60)
[2020-03-12] MEDS: Budesonide/Formoterol 160/4.5 1 PUFF INH IH SCH (07:51)
[2020-03-12 07:54] VITALS: BP 97/73
[2020-03-12] MEDS: Sennosides/Docusate Sodium TABLET PO SCH (07:55)
[2020-03-12] MEDS: Doxycycline 100 MG CAPSULE PO SCH (07:55)
[2020-03-12] MEDS: QUEtiapine Fumarate 25 MG TABLET PO SCH (07:55)
[2020-03-12] MEDS: Aspirin Enteric Coated 81 MG Tablet PO SCH (07:55)
[2020-03-12] MEDS: Nicotine 14 MG PATCH.TD24 TD SCH (07:55)
[2020-03-12] MEDS: carvediloL 6.25 MG TABLET PO SCH (07:59)
== END 2020-03-12 15:32 | disposition home or self-care (01) | DRG 871 ==
LOC: EMEROOARM 00:54 → ICNU 02:42
PROVIDERS: ADMIT Family Medicine; ATTEND Family Medicine

== ENCOUNTER 2020-04-10 11:00 | Inpatient (IN) ==
[2020-04-10] MEDS ORDERED: methylPREDNISolone 125 MG/2 ML VIAL IVP ONE (11:28)
[2020-04-10] MEDS ORDERED: Ipratropium/Albuterol Neb 3 ML IH ONE (11:28)
[2020-04-10 11:58] LABS: Basophils % 0.3 %; Eosinophils # 0.4 K/mcL (0.0-0.6); Hemoglobin 12.9 g/dL (12.9-16.9); Immature Granulocytes % 0.2 % (0-4); Lymphocytes # 1.4 K/mcL (0.6-4.6); Lymphocytes % 13.8 %; Mean Corpuscular HGB Conc 33.9 g/dL (31.6-35.5); Mean Corpuscular Hemoglobin 33.2 pg (28.0-33.3); Mean Corpuscular Volume 97.9 fL (83.0-100.0); Mean Platelet Volume 8.3 fL (9.4-12.4); Monocytes % 10.2 %; Platelet Count 315 K/mcL (140-400); Red Blood Count 3.88 M/mcL (4.19-5.50); Red Cell Distribution Width 13.9 % (11.5-14.5); Segmented Neutrophils % 71.5 %; White Blood Count 9.8 K/mcL (4.3-11.1)
[2020-04-10 12:06] LABS: INR 1.1; Prothrombin Time 12.5 Seconds (9.4-12.1)
[2020-04-10] MEDS ORDERED: *HR* LORazepam 2 MG/ML VIAL IVP ONE ×2 (12:09→15:34)
[2020-04-10 12:20] LABS: Alanine Aminotransferase 20 Units/L (7-52); Albumin 3.7 g/dL (3.5-5.7); Albumin/Globulin Ratio 1.6 (1.1-2.2); Alkaline Phosphatase 101 Units/L (34-104); Aspartate Amino Transferase 16 Units/L (13-39); BUN/Creatinine Ratio 20 (6-26); Bilirubin,Direct 0.1 mg/dL (0.0-0.2); Bilirubin,Indirect 0.5 mg/dL (0.0-1.0); Bilirubin,Total 0.6 mg/dL (0.3-1.0); Blood Urea Nitrogen 10 mg/dL (6-20); Calcium 8.9 mg/dL (8.6-10.3); Carbon Dioxide 27 mEq/L (23-29); Chloride 103 mEq/L (98-107); Globulin 2.3 g/dL (2.4-3.5); Glucose 97 mg/dL (70-105); Osmolality,Calculated 285 (280-300); Potassium 3.4 mEq/L (3.5-5.1); Sodium 138 mEq/L (136-145); Troponin I < 0.03 ng/mL (< 0.04); eGFR For African Americans > 60 (> 60); eGFR For Non-African Americans > 60 (> 60)
[2020-04-10] MEDS ORDERED: Isovue-370 500 ML BOTTLE IVP ONE (12:37)
[2020-04-10] MEDS ORDERED: Piperacillin/Tazobactam 3.375 GM in 0.9 % Sodium Chloride Mini Bag 100 ML IVPB ONE (15:40)
[2020-04-10] MEDS ORDERED: Vancomycin 1,500 MG/265 ML IV.SOLN IVPB ONE (15:40)
[2020-04-10] MEDS ORDERED: Azithromycin 500 MG in 0.9 % Sodium Chloride 250 ML IVPB ONE (15:40)
[2020-04-10] MEDS ORDERED: Naloxone 0.4 MG/ML INJ IVP PRN (16:13)
[2020-04-10] MEDS ORDERED: Ondansetron 4 MG/2 ML VIAL IVP PRN (16:13)
[2020-04-10] MEDS ORDERED: Ipratropium/Albuterol Neb 3 ML IH PRN (16:17)
[2020-04-10] MEDS: Famotidine 20 MG/2 ML VIAL IVP SCH (18:37)
[2020-04-10] MEDS: Budesonide/Formoterol 160/4.5 1 PUFF INH IH SCH (19:39)
[2020-04-10] MEDS: QUEtiapine Fumarate 25 MG TABLET PO SCH (20:13)
[2020-04-11 00:10] LABS: ABG Base Excess 0 mEq/L (-2 to 3); ABG HCO3 26 mEq/L (21-27); ABG Oxygen Saturation 98 % (95-98); ABG PCO2 43 mmHg (35-45); ABG PH 7.38 pH Units (7.32-7.45); ABG PO2 110 mmHg (85-104); ABG TCO2 27 mEq/L (20-26); Blood Gas FiO2 2.5 (1-15=lpm or21-100=%)
[2020-04-11] MEDS: *HR* LORazepam 0.5 MG TABLET PO PRN ×2 (01:43→10:23)
[2020-04-11] MEDS: Ipratropium 1 PUFF INHALER IH SCH ×6 (03:44→23:46)
[2020-04-11] MEDS: *HR* Enoxaparin 40 MG/0.4 ML SYRINGE SQ SCH (05:28)
[2020-04-11] MEDS: Famotidine 20 MG/2 ML VIAL IVP SCH ×2 (05:28→17:24)
[2020-04-11 05:54] LABS: Basophils % 0.3 %; Eosinophils % 0.1 %; Hematocrit 35.5 % (37.5-50.1); Immature Granulocytes % 0.4 % (0-4); Lymphocytes # 0.8 K/mcL (0.6-4.6); Lymphocytes % 10.6 %; Mean Corpuscular HGB Conc 33.8 g/dL (31.6-35.5); Mean Corpuscular Hemoglobin 32.4 pg (28.0-33.3); Mean Corpuscular Volume 95.9 fL (83.0-100.0); Mean Platelet Volume 8.3 fL (9.4-12.4); Monocytes # 1.1 K/mcL (0.0-1.3); Neutrophils # 5.3 K/mcL (1.6-8.9); Platelet Count 291 K/mcL (140-400); Segmented Neutrophils % 73.6 %; White Blood Count 7.2 K/mcL (4.3-11.1)
[2020-04-11 06:13] LABS: BUN/Creatinine Ratio 19 (6-26); Blood Urea Nitrogen 9 mg/dL (6-20); Carbon Dioxide 27 mEq/L (23-29); Chloride 102 mEq/L (98-107); Glucose 121 mg/dL (70-105); Magnesium 1.7 mg/dL (1.6-2.6); Osmolality,Calculated 276 (280-300); Potassium 4.6 mEq/L (3.5-5.1); Sodium 133 mEq/L (136-145); eGFR For African Americans > 60 (> 60); eGFR For Non-African Americans > 60 (> 60)
[2020-04-11] MEDS: Pyridoxine (B-6) 50 MG TABLET PO SCH (07:25)
[2020-04-11] MEDS: Nicotine 14 MG PATCH.TD24 TD SCH (07:25)
[2020-04-11] MEDS: Aspirin Enteric Coated 81 MG Tablet PO SCH (07:25)
[2020-04-11] MEDS: QUEtiapine Fumarate 25 MG TABLET PO SCH ×2 (07:26→21:44)
[2020-04-11] MEDS: Metoprolol XL (24 HR) Succ 25 MG TAB.ER.24H PO SCH (07:26)
[2020-04-11] MEDS: Budesonide/Formoterol 160/4.5 1 PUFF INH IH SCH ×2 (07:44→19:54)
[2020-04-11] MEDS: cefTRIAXone 1,000 MG in Water for inj. (sterile) 10 ML IVP SCH (11:15)
[2020-04-11] MEDS ORDERED: Azithromycin 500 MG in 0.9 % Sodium Chloride 250 ML IVPB SCH (16:00)
[2020-04-11] MEDS: Fluticasone Propionate Nasal 50 MCG/SPRAY BOTTLE NS SCH (17:40)
[2020-04-12] MEDS: Ipratropium 1 PUFF INHALER IH SCH ×3 (03:37→11:42)
[2020-04-12] MEDS: Famotidine 20 MG/2 ML VIAL IVP SCH (05:05)
[2020-04-12] MEDS: *HR* Enoxaparin 40 MG/0.4 ML SYRINGE SQ SCH (05:06)
[2020-04-12 05:48] LABS: Hematocrit 35.1 % (37.5-50.1); Hemoglobin 11.6 g/dL (12.9-16.9); Mean Corpuscular Hemoglobin 32.8 pg (28.0-33.3); Mean Corpuscular Volume 99.2 fL (83.0-100.0); Mean Platelet Volume 8.1 fL (9.4-12.4); Platelet Count 285 K/mcL (140-400); Red Blood Count 3.54 M/mcL (4.19-5.50); Red Cell Distribution Width 14.1 % (11.5-14.5); White Blood Count 9.2 K/mcL (4.3-11.1)
[2020-04-12 06:07] LABS: BUN/Creatinine Ratio 19 (6-26); Blood Urea Nitrogen 10 mg/dL (6-20); Calcium 8.4 mg/dL (8.6-10.3); Carbon Dioxide 25 mEq/L (23-29); Chloride 103 mEq/L (98-107); Glucose 89 mg/dL (70-105); Osmolality,Calculated 279 (280-300); Potassium 3.8 mEq/L (3.5-5.1); Sodium 135 mEq/L (136-145); eGFR For African Americans > 60 (> 60); eGFR For Non-African Americans > 60 (> 60)
[2020-04-12] MEDS: Budesonide/Formoterol 160/4.5 1 PUFF INH IH SCH (07:42)
[2020-04-12] MEDS: Fluticasone Propionate Nasal 50 MCG/SPRAY BOTTLE NS SCH (08:30)
[2020-04-12] MEDS: Metoprolol XL (24 HR) Succ 25 MG TAB.ER.24H PO SCH (08:51)
[2020-04-12] MEDS: QUEtiapine Fumarate 25 MG TABLET PO SCH (08:51)
[2020-04-12] MEDS: Pyridoxine (B-6) 50 MG TABLET PO SCH (08:51)
[2020-04-12] MEDS: Aspirin Enteric Coated 81 MG Tablet PO SCH (08:51)
[2020-04-12] MEDS: Nicotine 14 MG PATCH.TD24 TD SCH (08:51)
[2020-04-12] MEDS: cefTRIAXone 1,000 MG in Water for inj. (sterile) 10 ML IVP SCH (08:52)
[2020-04-12] MEDS: *HR* LORazepam 0.5 MG TABLET PO PRN (09:09)
[2020-04-12 09:19] VITALS: BP 109/89
== END 2020-04-12 11:47 | disposition home or self-care (01) | DRG 193 ==
LOC: SUATTDRO → EMEROOARM 11:00 → 2NENU 11:00
PROVIDERS: ADMIT Pharmacist; ATTEND Pharmacist